=== PATIENT | male | born 2000 | race Caucasian/White ===

== ENCOUNTER 2023-08-01 17:13 | Emergency (ER) | payer OTHER ==
[~2023-08-01] VITALS: Ht 182.9 cm; Wt 83.6 kg
[2023-08-01 18:08] LABS: BASO # 0.1 10^3/uL (0.0-0.2); BASO % 0.7 % (0.0-1.0); EOS # 0.2 10^3/uL (0.0-0.5); EOS % 2.2 % (0.0-3.0); HEMATOCRIT 41.9 % (42.0-52.0); HEMOGLOBIN 14.5 g/dl (13.5-17.5); LYMPH # 2.8 10^3/uL (1.5-5.0); LYMPH % 28.2 % (24.0-44.0); MEAN CORPUSCULAR HGB CONC 34.6 g/dl (32.0-36.5); MEAN CORPUSCULAR VOLUME 86.7 fl (80.0-96.0); MONO # 0.8 10^3/uL (0.0-0.8); MONO % 7.7 % (2.0-8.0); NEUTROPHILS # 6.1 10^3/uL (1.5-8.5); NEUTROPHILS % 60.7 % (36.0-66.0); PLATELET COUNT, AUTOMATED 331 10^3/uL (150-450); RED BLOOD COUNT 4.83 10^6/uL (4.30-6.10)
[2023-08-01 18:21] LABS: LIPASE 38 U/L (12-53)
[2023-08-01 18:23] LABS: CPK CREATINE PHOSPHOKINASE 592 U/L (46-171); MB/CK RELATIVE INDEX 0.33 (< OR =4)
[2023-08-01 18:24] LABS: ALBUMIN 4.3 G/DL (3.2-5.2); ALKALINE PHOSPHATASE 40 U/L (46-116); ALT/SGPT 43 U/L (7.0-40); AST/SGOT 52 U/L (<34); BILIRUBIN,DIRECT 0.3 MG/DL (<0.4); BILIRUBIN,TOTAL 0.8 MG/DL (0.3-1.2); BLOOD UREA NITROGEN 22 MG/DL (9-23); CALCIUM LEVEL 9.7 MG/DL (8.5-10.1); CARBON DIOXIDE LEVEL 24 MMOL/L (20-31); CHLORIDE LEVEL 105 MMOL/L (98-107); CREATININE FOR GFR 1.05 MG/DL (0.70-1.30); GLOMERULAR FILTRATION RATE > 60.0 (>60); GLUCOSE, FASTING 118 MG/DL (60-100); POTASSIUM SERUM 4.4 MMOL/L (3.5-5.1); SODIUM LEVEL 141 MMOL/L (136-145); TOTAL PROTEIN 7.3 G/DL (5.7-8.2)
[2023-08-01] MEDS ORDERED: NS 1,000 ML IV ONE (19:00)
[2023-08-01] MEDS ORDERED: ISOVUE-370 76% 100ML VIAL As Ordered ONE (19:11)
[2023-08-01 19:26] LABS: CK-MB VALUE MASS 1.6 NG/ML (<3.6)
[2023-08-01 19:27] LABS: CPK CREATINE PHOSPHOKINASE 556 U/L (46-171); MB/CK RELATIVE INDEX 0.28 (< OR =4)
[2023-08-01 22:00] VITALS: BP 142/61; TEMP 98.3; O2SAT 100
== END 2023-08-01 22:00 | disposition home or self-care (01) ==
LOC: M ED 17:13
DX: R07.9 Chest pain, unspecified (principal); I45.19 Other right bundle-branch block
CPT/HCPCS: 36415; 71046; 71275; 80048; 80076; 82550; 82553; 83690; 84484; 85025; 93005; 99284; Q9967

== ENCOUNTER 2023-12-02 02:15 | Emergency (ER) | payer OTHER ==
[~2023-12-02] VITALS: Ht 182.9 cm; Wt 89.0 kg
[2023-12-02] MEDS ORDERED: BUPR75TA5 PO (02:23)
[2023-12-02 03:14] LABS: RSV AMPLIFICATION NEGATIVE (NEGATIVE)
[2023-12-02] MEDS ORDERED: predniSONE 20 MG TAB PO ONE (03:45)
[2023-12-02] MEDS ORDERED: ALBUTEROL 90 MCG/ACT 8GM HFA INHALER INH ONE (03:45)
[2023-12-02] MEDS ORDERED: PRED20TA PO (03:48)
[2023-12-02 03:54] VITALS: BP 129/65; TEMP 98; O2SAT 98
== END 2023-12-02 04:11 | disposition home or self-care (01) ==
LOC: M ED 02:15
DX: J06.9 Acute upper respiratory infection, unspecified (principal); F10.10 Alcohol abuse, uncomplicated; F32.A Depression, unspecified; Z79.52 Long term (current) use of systemic steroids; Z79.899 Other long term (current) drug therapy
CPT/HCPCS: 87631; 99284; J7512

== ENCOUNTER 2024-03-27 08:25 | Day surgery (SDC) | payer OTHER ==
[~2024-03-27] VITALS: Ht 182.9 cm; Wt 88.5 kg
[~2024-03-27 08:25] MED LIST: ACETAMINOPHEN 1000MG 100ML IV BAG As Ordered ONE; BUPR75TA5 PO; BUSP10TA PO; KETOROLAC 60MG 2ML VIAL As Ordered ONE; ONDANSETRON 4MG 2ML VIAL As Ordered ONE; PRED20TA PO; ROCURONIUM BROMIDE 50MG/5ML VIAL As Ordered ONE; dexmedeTOMIDine (4MCG/ML)200MCG/50ML BTL (PRECEDEX) As Ordered ONE; propofoL 200 MG/20 ML VIAL As Ordered ONE
[2024-03-27] MEDS: LR 1,000 ML IV SCH ×2 (08:55→12:20)
[2024-03-27] MEDS: MIDAZOLAM INJ 2MG/2ML VIAL IV PRN (09:13)
[2024-03-27] MEDS: fentaNYL 100 MCG/2 ML INJECTION IV PRN (09:13)
[2024-03-27] MEDS: dexAMETHasone 10MG/1ML VIAL PRES.FREE PN ONE (09:16)
[2024-03-27] MEDS: LIDOCAINE 1% SDV 5ML VIAL PN ONE (09:16)
[2024-03-27] MEDS: ROPIvacaine 0.5% 30ML VIAL PN ONE (09:16)
[2024-03-27] MEDS: ceFAZolin SOD 2 GM in IV 1 EA IV ONE (09:24)
[2024-03-27] MEDS: TRANEXAMIC ACID 100 MG/ML 10ML VIAL IV ONE (09:30)
[2024-03-27] MEDS: TRANEXAMIC ACID 100 MG/ML 10ML VIAL As Ordered ONE (09:30)
[2024-03-27] MEDS ORDERED: HYDROmorphone HCL 2MG/ML 1ML VIAL As Ordered ONE (10:02)
[2024-03-27] MEDS: ROPIvacaine 0.5% 30ML VIAL As Ordered ONE (11:41)
[2024-03-27] MEDS ORDERED: ONDANSETRON 4MG 2ML VIAL IV PRN (12:00)
[2024-03-27] MEDS ORDERED: fentaNYL 100 MCG/2 ML INJECTION IV PRN (12:00)
[2024-03-27] MEDS: HYDROMORPHONE HCL 0.5 MG/ 0.5 ML SYRINGE IV PRN (12:19)
[2024-03-27] MEDS: oxyCODONE 5MG TAB PO PRN (12:20)
[2024-03-27 13:02] VITALS: BP 147/65; TEMP 98.7; O2SAT 99
== END 2024-03-27 14:25 | disposition home or self-care (01) ==
LOC: M SDC 08:25
PROVIDERS: ATTEND Orthopaedic Surgery
DX: S83.512A Sprain of anterior cruciate ligament of left knee, initial encounter (principal); X50.1XXA Overexertion from prolonged static or awkward postures, initial encounter; Y93.39 Activity, other involving climbing, rappelling and jumping off; Y92.84 Military training ground as the place of occurrence of the external cause; Y99.1 Military activity; Z87.891 Personal history of nicotine dependence
CPT/HCPCS: 29888; 76000; C1713; C9290; J0131; J0690; J1100; J1170; J1885; J2250; J2405; J2795; J3010